=== PATIENT | female | born 1975 | race Caucasian/White ===

== ENCOUNTER → 2020-04-27 14:36 | Outpatient (CLI) | payer OTHER, SELFPAY ==
--- NOTE | ~2020-04-27 | MMUS_ITS ---
EXAMINATION: MM diagnostic tomasa BI w paola, US breast LT limited HISTORY: Left axillary swelling for 1-2 months. No associated pain. No recent vaccinations. History o f colon cancer 2011. TECHNIQUE: Additional 3-D tomosynthesis images of the breasts were performed and synthetic 2-D images were generated. CAD analysis was submitted and interpreted. High resolution Limited left breast ultr asound was performed. COMPARISON: Comparison to multiple prior studies sequentially, with oldest reviewed study dated 09/2015. BREAST PARENCHYMAL COMPOSITION: The breasts are heterogenously dense, which may obscure small masses. FINDINGS: MAMMOGRAPHIC FINDINGS: There are no new breast masses, calcifications or architectural distortion. There are enlarged bilate ral axillary lymph nodes which are more prominent than on prior study. ULTRASOUND: Targeted left breast ultrasound in the area of palpable concern demonstrates multiple masses at the 1 -2:00 position, 13 cm from the nipple in the axillary region. There is effacement of normal fatty hil um consistent with pathologic lymph nodes, largest measuring 5.9 cm greatest dimension. IMPRESSION: 1. Enlarged bilateral axillary lymph nodes. Pathologic appearance to sonographically demonstrated lef t axillary lymph nodes measuring up to 5.9 cm. Considerations include metastatic disease and lymphoma . 2. Ultrasound-guided axillary lymph node biopsy recommended. BI-RADS category 4, suspicious findings. Reviewed, dictated and finalized at location A. FITS CLERK IMPRESSION: 1. Enlarged bilateral axillary lymph nodes. Pathologic appearance to sonographi viri demonstrated left axillary lymph nodes measuring up to 5.9 cm. Considerat ions include metastatic disease and lymphoma. 2. Ultrasound-guided axillary lymph node biopsy recommended. BI-RADS category 4, suspicious findings.
== END ==
PROVIDERS: PCP Family Medicine; Visit Provider Obstetrics & Gynecology
DX: N63.0 Unspecified lump in unspecified breast (principal); R92.8 Other abnormal and inconclusive findings on diagnostic imaging of breast
CPT/HCPCS: 76642; 77062; 77066; G0279

== ENCOUNTER → 2020-05-12 11:22 | Outpatient (CLI) | payer OTHER, BC, SELFPAY ==
--- NOTE | ~2020-05-12 | XR_ITS ---
EXAMINATION: XR shoulder RT min 2V DATE: 05/12/2020 12:13 INDICATION: Right shoulder pain. TECHNIQUE: 4 views of right shoulder were obtained. COMPARISON: None. FINDINGS: Bone alignment is normal. No fracture. Joint spaces are well maintained. IMPRESSION: 1. Normal right shoulder. Reviewed, dictated and finalized at location A. HALMOLOGIST RETINA SPECIALIST IMPRESSION: 1. Normal right shoulder.
--- NOTE | ~2020-05-12 | XR_ITS ---
EXAMINATION: XR chest 2V DATE: 05/12/2020 12:13 INDICATION: Localized enlarged lymph nodes. TECHNIQUE: Frontal and lateral views of the chest were obtained. COMPARISON: Chest 2 views 11/04/2018 FINDINGS: The chest demonstrates clear lungs without pneumonia, pleural effusion, or pneumothorax. Th e heart size is normal. IMPRESSION: 1. No acute cardiopulmonary disease. Reviewed, dictated and finalized at location A. DING CONSTRUCTION CONTRACTOR
== END ==
PROVIDERS: PCP Family Medicine; Visit Provider Nurse Practitioner Family
DX: M25.511 Pain in right shoulder (principal); R59.0 Localized enlarged lymph nodes; R59.1 Generalized enlarged lymph nodes
CPT/HCPCS: 71046; 73030

== ENCOUNTER 2020-05-27 09:37 | Outpatient (CLI) | payer OTHER, BC, SELFPAY | END 2020-05-27 09:38 | disposition home or self-care (01) | LOC: ANHCOVIDVC 09:37 | PROVIDERS: PCP Family Medicine | DX: Z23 Encounter for immunization (principal) | CPT/HCPCS: 0001A; 91300 ==

== ENCOUNTER 2020-06-15 09:37 | Outpatient (CLI) | payer OTHER, BC, SELFPAY | END 2020-06-15 09:38 | disposition home or self-care (01) | LOC: ANHCOVIDVC 09:37 | PROVIDERS: PCP Family Medicine | DX: Z23 Encounter for immunization (principal) | CPT/HCPCS: 0002A; 91300 ==

== ENCOUNTER 2021-01-30 00:35 | Day surgery (SDC) | payer OTHER, BC, SELFPAY ==
[2021-01-12 14:02] VITALS: BMI 25.4
--- NOTE | 2021-01-27 14:30 | PM.HPGS ---
History of Present Illness History of Present Illness Consent: Risks, benefits, and alternatives have been discussed and questions answered. Patient agrees to proceed with procedure. Chief complaint: hx of colon ca Narrative: Rocío Maciel is a 45 year old female here for colon cancer screening. She had a resection of colon cancer about 12 years ago Review of Systems Review of Systems: All systems reviewed & are unremarkable except as noted in HPI and below PMFSH Past Medical History Medical History Axillary lymphadenopathy BMI 25.0-25.9,adult Cervical lymphadenopathy COPD (chronic obstructive pulmonary disease) Follicular lymphoma History of colon cancer, stage I Surgical History Surgical History History of colon resection Tubal ligation status Family History Family History Father Hypertension Melanoma Grandparent Family history of cardiovascular disease Sibling Melanoma Social History Social History Years smoked: 15 Smoking status: Former smoker Tobacco type: cigarettes Smoking end date: 02/08/20 Alcohol intake: current Drinks per week: 3 Alcohol use details: SOCIALLY Substance use: never Living arrangements: with family Spiritual care concerns: No Meds Home Medications and Allergies Home Medications Medication Instructions Recorded Confirmed Type acyclovir 400 mg tablet 400 mg PO BID 12/28/20 01/12/21 History Allergies Allergy/AdvReac Type Severity Reaction Status Date / Time No Known Allergies Allergy Verified 01/30/21 08:31 Exam Resp: Auscultation: clear to auscultation bilaterally Cardio: Rate: regular rate Rhythm: regular rhythm GI: GI Palp: Yes Soft to palpation and No Tenderness to palpation present (GI) Assessment and Plan Assessment and plan (1) Colon cancer screening: Code(s): Z12.11 - Encounter for screening for malignant neoplasm of colon Status: Acute Assessment and Plan: Colonoscopy with possible biopsy or polypectomy or cautery or injection of substances. (2) History of colon cancer: Code(s): Z85.038 - Personal history of other malignant neoplasm of large intestine Status: Acute
--- NOTE | 2021-01-30 07:41 | P.PNAN_ITS ---
Anes - Initial Pre Proc Eval Procedure: Operation Date: 01/30/21 09:30 Proposed Procedures p Screening Colonoscopy - Abner Ardon MD Date/Time: 01/30/21 07:41 Surgeon: Abner Ardon MD Pre Op Diagnosis: hx of colon ca Patient Data Age: 45 Gender: F Height: 1.55 m Weight: 61 kg Allergies Allergy/AdvReac Type Severity Reaction Status Date / Time No Known Allergies Allergy Verified 01/30/21 08:31 Home Medications Medication Instructions Recorded Confirmed Type acyclovir 400 mg tablet 400 mg PO BID 12/28/20 01/12/21 History Patient hx anesthesia problems: none Family hx anesthesia problems: none Results Review: All pre-operative results and documents have been reviewed as part of the pre-operative evaluation. [facility] Past Medical History Medical History Axillary lymphadenopathy BMI 25.0-25.9,adult Cervical lymphadenopathy COPD (chronic obstructive pulmonary disease) Follicular lymphoma History of colon cancer, stage I Surgical History Surgical History History of colon resection Tubal ligation status Family History Family History Father Hypertension Melanoma Grandparent Family history of cardiovascular disease Sibling Melanoma Social History Social History Years smoked: 15 Smoking status: Former smoker Tobacco type: cigarettes Smoking end date: 02/08/20 Alcohol intake: current Drinks per week: 3 Alcohol use details: SOCIALLY Substance use: never Living arrangements: with family Spiritual care concerns: No Anes - Eval Final PreProcedure Day of Procedure 01/30/21 07:41 Patient weight: normal Heart: regular rate and rhythm Lungs: clear to auscultation and normal air movement Airway: Mallampati scale class II Neurological: alert and oriented Last oral intake: >/= 8 hours ASA classification: III Emergent: no Anesthetic plan: proceed Anesthesia type and monitoring: general GIVS Results Review: All pre-operative results and documents have been reviewed as part of the pre-operative evaluation. Informed Consent: The patient's anesthetic plan and its attendant risks and benefits were discussed with the patient/family/POA. Questions were solicited and answers provided to the satisfaction of the patient/family/POA.
[2021-01-30 08:32] VITALS: BP 106/61; PULSE 68; RESP 18; TEMP 36.8; O2SAT 100
[2021-01-30] MEDS: LACTATED RINGERS 1,000 ML 150 ML IV CONT (08:48)
[2021-01-30 09:19] VITALS: BP 90/58; PULSE 81; RESP 24; O2SAT 100
[2021-01-30 09:29] VITALS: BP 109/65; PULSE 70; RESP 16; O2SAT 100
[2021-01-30 09:39] VITALS: BP 99/71; PULSE 72; RESP 20; O2SAT 100
== END 2021-01-30 09:44 | disposition home or self-care (01) ==
PROVIDERS: PCP Family Medicine; Visit Provider Internal Medicine Gastroenterology
PROC: 0DJD8ZZ Inspection of Lower Intestinal Tract, Via Natural or Artificial Opening Endoscopic (ICD-10-PCS; CPT 45378; principal; 2021-01-30 09:30)
DX: Z12.11 Encounter for screening for malignant neoplasm of colon (principal); K62.1 Rectal polyp; Z98.0 Intestinal bypass and anastomosis status; Z85.038 Personal history of other malignant neoplasm of large intestine; Z90.49 Acquired absence of other specified parts of digestive tract; J44.9 Chronic obstructive pulmonary disease, unspecified; Z87.891 Personal history of nicotine dependence; Z85.72 Personal history of non-Hodgkin lymphomas
CPT/HCPCS: 45380; 88305; J2704; J7120

== ENCOUNTER → 2021-02-21 07:34 | Outpatient (CLI) | payer OTHER, BC, SELFPAY ==
--- NOTE | ~2021-02-21 | XR_ITS ---
EXAMINATION: XR ribs BI 3V w CXR 2V DATE: 02/21/2021 08:31 INDICATION: Pleurodynia. TECHNIQUE: Frontal and lateral views of the chest and 2 views of the right ribs on 3 radiographs and 2 views of the left ribs on 3 radiographs were obtained. COMPARISON: Chest 2 views 05/12/2020 FINDINGS: CHEST TWO VIEWS: The chest demonstrates clear lungs without pneumonia, pleural effusion, or pneumotho rax. The heart size is normal. BILATERAL RIBS: There is no rib fracture. IMPRESSION: 1. No rib fracture. Reviewed, dictated and finalized at location A. AY REPAIR SUPERVISOR IMPRESSION: 1. No rib fracture.
== END ==
PROVIDERS: PCP Family Medicine; Visit Provider Nurse Practitioner Family
DX: R07.81 Pleurodynia (principal)
CPT/HCPCS: 71046; 71110

== ENCOUNTER → 2021-04-07 11:09 | Outpatient (CLI) | payer OTHER, BC, SELFPAY ==
--- NOTE | ~2021-04-07 | CT_ITS ---
EXAMINATION: CT soft tiss nk chst ab pel w DATE: 04/07/2021 11:53 INDICATION: Grade 2 follicular lymphoma of lymph nodes of the axilla. TECHNIQUE: Computed tomography (CT) of the neck, chest, abdomen, and pelvis was performed with 100 mL Omnipaque 350 intravenous contrast. Automated exposure control and iterative reconstruction techniqu e were employed. The dose-length product was 1331 mGy-cm. COMPARISON: CT abdomen and pelvis 04/26/2014 FINDINGS: CT NECK: There are no pathologically enlarged lymph nodes. There is 0% stenosis of the proximal inter nal carotid arteries relative to normal distal artery lumen diameters. There is moderate cervical spo ndylosis. CT CHEST: There is mild emphysema. There is mild atelectasis with a dependent predominance bilaterall y. The heart size is normal. No pericardial effusion. There is left axillary lymphadenopathy. The lar gest node measures 1.[address] ABDOMEN AND PELVIS: The liver, gallbladder, spleen, and pancreas are normal. There is stable thick ening of right adrenal gland, likely benign. There is a chronic 14 mm mass in left adrenal gland zan uring soft tissue attenuation, likely an adenoma. Right kidney is normal. There is a 3 mm cyst in lef t kidney. There is an anastomosis in the rectosigmoid. The appendix is normal. There are no pathologi viri enlarged lymph nodes. There is no free intraperitoneal fluid. There is an umbilical hernia cont aining fat. There is mild lumbar spondylosis. IMPRESSION: 1. Mild left axillary lymphadenopathy, consistent with lymphoma. Reviewed, dictated and finalized at location A. PATIONAL THERAPY CO DIRECTOR
== END ==
DX: C82.14 Follicular lymphoma grade II, lymph nodes of axilla and upper limb (principal)
CPT/HCPCS: 70491; 71260; 74177; Q9967

== ENCOUNTER → 2021-05-31 09:57 | Outpatient (CLI) | payer OTHER, BC, SELFPAY ==
--- NOTE | ~2021-05-31 | MM_ITS ---
EXAMINATION: MM screening tomasa BI w paola HISTORY: Screening mammogram TECHNIQUE: Craniocaudal and mediolateral oblique 3-D tomosynthesis images were obtained and synthetic 2-D images were generated. CAD analysis was submitted and interpreted. COMPARISON: No prior mammogram is available for comparison at this institution. BREAST PARENCHYMAL COMPOSITION: FINDINGS: Possible architectural distortion in the posterior upper outer left breast. Diagnostic left mammogram and left breast ultrasound examination are recommended. IMPRESSION: 1. Possible architectural distortion in upper outer left breast 2. Diagnostic left mammogram and left breast ultrasound examination are recommended. BI-RADS Category 0: Incomplete: Needs additional imaging evaluation. Reviewed, dictated and finalized at location A. IMPRESSION: 1. Possible architectural distortion in upper outer left breast 2. Diagnostic left mammogram and left breast ultrasound examination are recomme nded. BI-RADS Category 0: Incomplete: Needs additional imaging evaluation.
== END ==
PROVIDERS: PCP Family Medicine; Visit Provider Obstetrics & Gynecology
DX: Z12.31 Encounter for screening mammogram for malignant neoplasm of breast (principal); R92.8 Other abnormal and inconclusive findings on diagnostic imaging of breast
CPT/HCPCS: 77063; 77067

== ENCOUNTER → 2022-01-08 08:12 | Outpatient (CLI) | payer OTHER, BC, SELFPAY ==
--- NOTE | ~2022-01-08 | DEXA_ITS ---
Bone Density Report Name: JUAN LINARES Age: 46 Sex: Female Ethnicity: White Date of : 1975 Indication: postmenopausal; cancer; asthma or emphysema; Referring Provider: Derek Duggan Study: Bone densitometry was performed. Exam Date: January 08, 2022 Accession number: [id number] Bone Density: Region BMD T-score Z-score Classification AP Spine (L1-L4) 0.916 -1.2 -0.7 Osteopenia Femoral Neck (Left) 0.724 -1.1 -0.6 Osteopenia Total Hip (Left) 0.848 -0.8 -0.4 Normal Femoral Neck (Right) 0.716 -1.2 -0.7 Osteopenia Total Hip (Right) 0.869 -0.6 -0.3 Normal Total Hip Mean 0.859 -0.7 -0.4 Normal World Health Organization criteria for BMD impression classify patients as: Normal (T-score at or above -1.0), Osteopenia (T-score between -1.0 and -2.5), or Osteoporosis (T-score at or below -2.5). 10-year Fracture Risk(1): Major Osteoporotic Fracture 3.2% Hip Fracture 0.2% Reported Risk Factors: [place] (), Neck BMD=0.716, BMI=25.6 (1) FRAX(R) Version 3.08. Fracture probability calculated for an untreated patient. Fracture probability may be lower if the patient has received treatment. Clinical Information Provided by Patient: Has used the following medications: Vitamin D, Calcium Has the following medical conditions: Asthma or Emphysema, Cancer Patient maximum height was 62 Menopause Age: 46 Does not regularly consume dairy products Drinks caffeinated beverages Onset of menses at age 12 Number of children 2 Missed period for more than 6 months in a row Impression: The patient has low bone mass, based on the Total Spine T-score. The patient has an estimated ten-year risk of hip fracture of 0.2% and an estimated ten-year risk of major fracture of 3.2%, based on the WHO FRAX algorithm. Discussion: BONE DENSITY IS LOW AT ONE OR MORE SKELETAL SITES. This patient's lowest T-score is low at one or more skeletal sites. It meets the World Health Organization's (WHO) criteria for ?low bone mass? (T-score between -1.0 and -2.5). The patient's 10-year risk of fracture as calculated by FRAX is less than the threshold where pharmacological therapy is recommended by the National Osteoporosis Foundation (NOF). However, all treatment decisions require clinical judgment and consideration of individual patient factors, including patient preferences, comorbidities, previous drug use, risk factors not captured in the FRAX model (e.g., frailty, falls, vitamin D deficiency, increased bone turnover, interval significant decline in bone density) and possible under or overestimation of fracture risk by FRAX. The patient should follow a healthful lifestyle (good nutrition with adequate calcium and vitamin D, and appropriate weight-bearing exercise). Follow-Up: Consider repeating this study in 2 to 3 years to reassess
== END ==
PROVIDERS: PCP Family Medicine; Visit Provider Nurse Practitioner Family
DX: C82.90 Follicular lymphoma, unspecified, unspecified site (principal); Z92.21 Personal history of antineoplastic chemotherapy; Z78.0 Asymptomatic menopausal state; M85.88 Other specified disorders of bone density and structure, other site; M85.852 Other specified disorders of bone density and structure, left thigh; M85.851 Other specified disorders of bone density and structure, right thigh
CPT/HCPCS: 77080

== ENCOUNTER → 2023-03-06 10:46 | Outpatient (CLI) | payer OTHER, BC, SELFPAY ==
--- NOTE | ~2023-03-06 | XR_ITS ---
EXAMINATION: XR elbow RT 2V DATE: 03/06/2023 11:13 INDICATION: Right elbow pain. TECHNIQUE: 2 views of right elbow were obtained. COMPARISON: None. FINDINGS: Bone alignment is normal. No fracture. Joint spaces are normal. No elbow joint effusion. IMPRESSION: 1. Normal right elbow. Reviewed, dictated and finalized at location E. DRIVER IMPRESSION: 1. Normal right elbow.
== END ==
PROVIDERS: PCP Nurse Practitioner Adult Health; Visit Provider Nurse Practitioner Adult Health
DX: M25.521 Pain in right elbow (principal)
CPT/HCPCS: 73070

== ENCOUNTER 2023-06-10 14:06 | Outpatient (CLI) | payer OTHER, BC, SELFPAY ==
[2023-06-10 14:32] LABS: Basophils Percent Auto 0.5 % (0.2-1.2); Eosinophils Absolute Auto 0.1 K/mm3 (0-0.3); Eosinophils Percent Auto 1.6 % (0-4.4); Hematocrit 43.5 % (37.0-47.0); Immature Granulocyte Absolute 0.02 K/mm3 (0.00-0.031); Immature Granulocyte Percent A 0.3 % (0-0.5); Lymphocytes Absolute Auto 0.58 K/mm3 (0.9-3.2); Lymphocytes Percent Auto 9.1 % (18.3-44.2); Mean Corpuscular HGB Conc 32.2 g/dl (32-36); Mean Corpuscular Hemoglobin 29.6 pg (26-34); Mean Platelet Volume 9.6 fl (7.4-10.4); Monocytes Absolute Auto 0.4 K/mm3 (0.1-0.6); Monocytes Percent Auto 6.9 % (2.6-8.5); Neutrophils Absolute Auto 5.2 K/mm3 (1.3-6.7); Neutrophils Percent Auto 81.6 % (45.5-73.1); Platelet Count Result 202 k/mm3 (150-375); Red Blood Count 4.73 M/mm3 (4.2-5.4); Red Cell Distribution Width 13.1 % (11.5-14.5); White Blood Count 6.4 K/mm3 (4.5-10.0)
[2023-06-10 16:39] LABS: Alanine Aminotransferase 27 U/L (6-35); Albumin Level 4.3 g/dL (3.5-5.1); Alkaline Phosphatase 76 U/L (38-126); Anion Gap 5 mmol/L (4-12); Aspartate Amino Transferase 28 U/L (14-36); Bilirubin,Total 0.3 mg/dL (0.2-1.3); Blood Urea Nitrogen 15 mg/dL (7-17); Calcium 9.8 mg/dL (8.4-10.2); Carbon Dioxide 32 mmol/L (22-30); Chloride 104 mmol/L (98-107); Estimated Glomerular Filt Rate > 60; Glucose 102 mg/dL (65-110); Lactate Dehydrogenase 194 U/L (120-246); Potassium 3.9 mmol/L (3.4-5.0); Sodium 141 mmol/L (137-145)
== END 2023-06-10 14:07 | disposition home or self-care (01) ==
LOC: ANHLAB 14:16
PROVIDERS: PCP Nurse Practitioner Adult Health; Visit Provider Internal Medicine Hematology & Oncology
DX: C82.90 Follicular lymphoma, unspecified, unspecified site (principal)
CPT/HCPCS: 36415; 80053; 83615; 85025

== ENCOUNTER 2024-01-20 14:37 | Outpatient (CLI) | payer OTHER, BC, SELFPAY ==
--- NOTE | ~2024-01-20 | MM_ITS ---
EXAMINATION: MM screening tomasa BI w paola HISTORY: Screening mammogram TECHNIQUE: Craniocaudal and mediolateral oblique 3-D tomosynthesis images were obtained and synthetic 2-D images were generated. CAD analysis was submitted and interpreted. COMPARISON: 05/31/2021, 04/27/2020 BREAST PARENCHYMAL COMPOSITION:Dense: The breasts are heterogeneously dense, which may obscure small masses. FINDINGS: No suspicious mass, calcification, or architectural distortion are identified in either alex ast to suggest malignancy. There has been no suspicious interval change. IMPRESSION: No mammographic evidence of malignancy. Recommend routine screening mammography in one year. BI-RADS Category 1: Negative Reviewed, dictated and finalized at location . RAL SCIENCES DEPARTMENT CHAIR
== END 2024-01-20 14:38 | disposition home or self-care (01) ==
LOC: ANHIMG 14:39
PROVIDERS: PCP Family Medicine; Visit Provider Obstetrics & Gynecology
DX: Z12.31 Encounter for screening mammogram for malignant neoplasm of breast (principal)
CPT/HCPCS: 77063; 77067

== ENCOUNTER 2025-01-29 08:15 | Outpatient (CLI) | payer OTHER, SELFPAY ==
--- NOTE | ~2025-01-29 | CT_ITS ---
EXAMINATION: CT elbow LT wo con DATE: 01/29/2025 08:33 INDICATION: Closed displaced fracture of the left radial neck TECHNIQUE: High resolution computed tomography (CT) of the left elbow was performed without intravenous contrast. Additional sagittal and coronal reconstructions were performed. Automated exposure control and iterative reconstruction technique were employed. The dose-length product was 79.16 mGy-cm. COMPARISON: Radiographs dated 09/12/2017 FINDINGS: There is an acute nondisplaced fracture extending across the neck of the proximal left radius. There is volar sided impaction resulting in approximately 35 degrees volar angulation of the axis of the radial diaphysis relative to the axis orthogonal to the articular surface. No evident fracture of the articular surface. There is a second small coronally oriented intra-articular fracture extending across the mid portion of the coronoid process with up to 2 mm separation of the fracture plane at the articular surface. The elbow joint spaces and alignment remain otherwise normal. There is a small joint effusion. Soft tissues are otherwise unremarkable. IMPRESSION: 1. Volar impaction with 35 degrees volar angulation of a nondisplaced fracture across the neck of the radius. 2. Minimal displacement of a small intra-articular impaction fracture at the coronoid process. 3. Small joint effusion. Reviewed, dictated and finalized at location A. CE INSPECTOR IMPRESSION: 1. Volar impaction with 35 degrees volar angulation of a nondisplaced fracture across the neck of the radius. 2. Minimal displacement of a small intra-articular impaction fracture at the co ronoid process. 3. Small joint effusion.
== END 2025-01-29 08:16 | disposition home or self-care (01) ==
LOC: MICIMG 08:16
PROVIDERS: PCP Obstetrics & Gynecology
DX: S52.132A Displaced fracture of neck of left radius, initial encounter for closed fracture (principal); X58.XXXA Exposure to other specified factors, initial encounter; M25.422 Effusion, left elbow
CPT/HCPCS: 73200